=== PATIENT | female | born 1950 | race Caucasian/White ===

== ENCOUNTER → 2016-12-13 | Day surgery (SDC) | payer OTHER ==
[~2016-12-13] MED LIST: B-12500 MCG PO; FLAX FISH PO; FLAX SEED OIL1 EACH PO; MOVE FREE ULTR1 EACH PO; MULTI-DAY VITA1 EACH PO; MULTIVITAMIN1 UDCAP PO; PRAVASTATIN SOD40 MG PO; SIMVASTATIN40 MG PO; STOOL SOFTENER1 EACH PO; TRIAMTERENE-HC1 EAC1 PO; VISION VITAMIN1 EACH PO; VITAMIN D32000 UNIT PO; ZANTAC150 M1 PO; ZESTORETIC 20-1 EAC1 PO; ZESTRIL40 MG PO; [UNRECOGNIZED DRUG - OTHER] PO
--- NOTE | ~2016-12-13 | OR ---
Unit #: [id number] #: [id number] Patient: BIENVENIDO FRAGA [id number] [address] [place], [place] [address] [id number] O MR#: [id number] NAME: BIENVENIDO FRAGA ROOM: Date of Procedure: 12/13/2016 Admission Date: 12/13/2016 Surgeon: Waqas Alvarez M.D. : 1950 Attending Physician: Waqas Alvarez M.D. Primary Care Physician: Segun Zurita M.D. PROCEDURE OPERATIVE NOTE PREOPERATIVE DIAGNOSIS Colorectal cancer screening surveillance in a high risk patient. The patient has a personal history of colon polyps. POSTOPERATIVE DIAGNOSES 1. Single sessile polyp in the proximal ascending colon. This was diminutive and was removed using cold biopsy forceps. 2. Mild sigmoid and descending colon diverticulosis. 3. The rest of the examination up to sigmoid and terminal ileum was normal. The quality of the prep was excellent. PROCEDURE PERFORMED Colonoscopy and biopsy. SEDATION USED MAC. RECOMMENDATIONS Follow up the results of polyp pathology and, if adenoma, consider repeat examination in five years. PROCEDURE DESCRIPTION Following detailed explanation of potential risks and complications of a colonoscopy, namely perforation, bleeding and complication of sedation, the patient was brought to the GI lab and laid in the left lateral decubitus position. A digital rectal examination was performed which was normal. The lubricated tip of the Olympus video colonoscope was inserted through the anus and advanced under direct vision. The scope was advanced past the rectosigmoid into descending colon. Multiple small scant diverticula were seen in this area. The scope was then navigated all the way up to the cecum with visualization of ileocecal valve and the appendiceal orifice. Preparation was good with good visualization and photo documentation was obtained. The last few inches of the terminal ileum also visualized after intubation of the ileocecal valve and appeared normal. Successive segments of the colonic mucosa were examined upon withdrawal. A single sessile polyp was noted in the proximal ascending colon. This was diminutive and was removed using cold biopsy forceps. No additional polyps were seen. Other than the scant diverticula seen on the left side, no other abnormalities were performed. The patient did not have any hemorrhoids in the anal verge. The scope was then withdrawn. The patient returned to the recovery area. She tolerated the procedure without any postprocedure complications. Unit #: [id number] #: [id number] Patient: BIENVENIDO FRAGA Dictated by..Joseph Gonzalez/michael TD: 12/13/2016 12:12 JOB #: [id number] PROCEDURE OPERATIVE NOTE Page 1 of 1 X Waqas Alvarez MD PROCEDURE OPERATIVE NOTE
== END | disposition home or self-care (01) ==
LOC: COPS 08:53
DX: Z12.11 Encounter for screening for malignant neoplasm of colon (principal); D12.2 Benign neoplasm of ascending colon; K57.30 Diverticulosis of large intestine without perforation or abscess without bleeding; I10 Essential (primary) hypertension; Z88.5 Allergy status to narcotic agent; Z79.899 Other long term (current) drug therapy; Z98.51 Tubal ligation status
CPT/HCPCS: 88305; J2250